=== PATIENT | male | born 1940 | race Caucasian/White ===

== ENCOUNTER 2016-07-30 07:14 | Observation (INO) | payer OTHER ==
[2016-07-25 09:52] VITALS: BMI 29.0
--- NOTE | 2016-07-25 10:35 | PAT Medication Instructions ---
Service Date July 25, 2016. Current Home Medication List Acetaminophen (Tylenol), 500 MG PO UD PRN for Pain Ascorbic Acid (Vitamin C), 1 TAB PO QAM Aspirin (Aspirin Ec), 81 MG PO QAM Bone Meal W/ Vitamin D (Bone Meal), 1 TAB PO QAM Cholecalciferol (Vitamin D), 1 TAB PO QAM Coenzyme Q10 (Ubidecarenone) (Co Q10), 200 MG PO QAM Fish Oil ([place]-3), 1 CAP PO BID Fluticasone Propionate (Nasal) (Flonase Allergy Relief), 1 DOSE INH UD Garlic (Garlic Oil), 1 MG PO QAM Lisinopril (Zestril), 30 MG PO QAM Lovastatin (Mevacor), 40 MG PO QAM Metoprolol Succ (Toprol Xl) (Toprol-Xl), 25 MG PO BID Multivitamin (Multivitamin), 1 TAB PO QAM Nitroglycerin (Nitrostat), 0.4 MG UT PRN PRN for CHEST PAIN Pantoprazole Sodium (Protonix), 40 MG PO QAM [Saw Napavine], 320 MG PO QAM Medication Instructions For Your Scheduled Surgery -Use if needed: Nitroglycerin (Nitrostat), 0.4 MG UT PRN PRN for CHEST PAIN - Last dose 07/21/16 as instructed by surgeon: Aspirin (Aspirin Ec), 81 MG PO QAM - Hold the following medications as of tday 07/25/16: Garlic (Garlic Oil), 1 MG PO QAM [Saw Napavine], 320 MG PO QAM Coenzyme Q10 (Ubidecarenone) (Co Q10), 200 MG PO QAM Fish Oil ([place]-3), 1 CAP PO BID - Hold the following medications the morning of surgery: Ascorbic Acid (Vitamin C), 1 TAB PO QAM Bone Meal W/ Vitamin D (Bone Meal), 1 TAB PO QAM Cholecalciferol (Vitamin D), 1 TAB PO QAM Multivitamin (Multivitamin), 1 TAB PO QAM Lisinopril (Zestril), 30 MG PO QAM - Take the following medications the morning of surgery with a sip of water OTHERWISE NOTHING TO EAT OR DRINK AFTER MIDNIGHT: Acetaminophen (Tylenol), 500 MG PO UD PRN for Pain (may take if needed up to 4 hours prior to surgery if needed) Percocet (may take if needed up to 4 hours prior to surgery if needed) Fluticasone Propionate (Nasal) (Flonase Allergy Relief), 1 DOSE INH UD Pantoprazole Sodium (Protonix), 40 MG PO QAM Metoprolol Succ (Toprol Xl) (Toprol-Xl), 25 MG PO BID Lovastatin (Mevacor), 40 MG PO QAM - Take the following medications as scheduled the night before surgery: Acetaminophen (Tylenol), 500 MG PO UD PRN for Pain Percocet Metoprolol Succ (Toprol Xl) (Toprol-Xl), 25 MG PO BID If you have any questions please call us at [phone] or [phone] or [phone]
[2016-07-25 11:14] LABS: URINE APPEARANCE CLEAR (CLEAR); URINE BILIRUBIN NEG (NEG); URINE COLOR YELLOW; URINE NITRITE NEG (NEG); URINE PH 6.5 (4.5-7.5); URINE SPECIFIC GRAVITY 1.017 (1.000-1.030); UROBILINOGEN NEG (NEG)
[2016-07-25 11:14] LABS: BASO % 0.5 %; BASO ABS # 0.03 K/uL (0-0.2); COMPLETE YES; HEMATOCRIT 39.9 % (42-52); IG% 0.3 %; LYMPH % 16.1 %; LYMPH ABS # 0.94 K/uL (1.2-3.4); MEAN CELL VOLUME 100.5 fL (80-100); MEAN CORPUSCULAR HGB CONC 33.8 g/dl (32-36); MEAN PLATELET VOLUME 10.6 fL (7.4-10.4); NEUT % 76.1 %; PLATELET COUNT 201 K/uL (130-400); RED BLOOD COUNT 3.97 M/uL (4.7-6.1); WHITE BLOOD COUNT 5.84 K/uL (4.8-10.8)
[2016-07-25 11:43] LABS: MANUAL MICROSCOPIC REQUIRED? NO; REVIEW REQ? NO
[2016-07-25 12:54] LABS: CALCIUM 9.6 mg/dl (8.5-10.1); CREATININE 1.1 mg/dl (0.60-1.40); POTASSIUM 4.5 mmol/L (3.5-5.1)
--- NOTE | 2016-07-29 18:06 | HISTORY & PHYSICAL EXAMINATION ---
DATE OF ADMISSION: 07/30/2016 CHIEF COMPLAINT: Right quad rupture. HISTORY OF PRESENT ILLNESS: This is a 76-year-old male patient of Dr. Rose who misstepped his bottom step at home recently and apparently fell. He sustained a right quadriceps muscle rupture and wishes to proceed with a right quadriceps repair. PAST MEDICAL HISTORY: Angina with chest pain, congenital heart disease, hypertension, hypercholesterolemia, and coronary artery disease. SOCIAL HISTORY: Nonsmoker, occasional drinker. PAST SURGICAL HISTORY: Knee surgery in the past. FAMILY HISTORY: Noncontributory. REVIEW OF SYSTEMS: The patient complains of right knee pain and weakness. Otherwise, denies any shortness of breath, chest pain, nausea, vomiting or any other joint complaints. MEDICATIONS: Tylenol 500 mg daily, lisinopril 30 mg daily, Protonix 40 mg daily, metoprolol 50 mg daily, Flonase 50 mcg nasally daily, nitroglycerin 0.4 mg p.r.n., ferrous sulfate 325 as needed, Antivert, aspirin, multivitamin, vitamin D, vitamin C, and garlic oil. ALLERGIES: CRESTOR AND LIPITOR. PHYSICAL EXAMINATION: GENERAL: Well-developed, well-nourished 76-year-old male in no acute distress. He is alert and oriented x3 and pleasant. HEENT: Normocephalic, atraumatic. Extraocular motions are intact. Pupils are equal and reactive to light. HEART: Regular rate and rhythm, no murmurs appreciated. LUNGS: Clear. ABDOMEN: Soft, nontender, bowel sounds present. EXTREMITIES: Right knee reveals obvious palpable deformity with the quadriceps tendon above the patella. He lacks extensor mechanism. He cannot extend his knee actively. Varus and valgus stressing are stable. DIAGNOSES: Right knee quadriceps rupture. He also has a history of angina and chest pain, coronary artery disease, congenital heart disease, hypertension, and hypercholesterolemia. PLAN: The patient was advised of his diagnosis. Indications, risks, benefits, and postop course have all been reviewed. The patient wishes to proceed with a right quadriceps tendon repair. Necessary consent forms, preoperative testing and clearances will be obtained. [facility]
[2016-07-30] VITALS (9 sets, daily range): BP systolic 107–149; BP diastolic 68–97; PULSE 65–79; TEMP 36.4–36.8; O2SAT 90–96; Ht 180.3 cm; Wt 96.9 kg
[~2016-07-30] VITALS: Ht 180.3 cm; Wt 96.9 kg
[~2016-07-30 07:14] MED LIST: ACET-1256 PO; ASCA500 PO; ASPI81TA28 PO; BONETAB PO; CEFAZOLIN 2000 MG/60 ML D5W IV SCH; CHOL400T PO; COEN1CAP10 PO; FLUT0.15 INH; GARL3CAP PO; LACTATED RINGER'S 1000ML 1,000 ML IV SCH; LOVA40TA4 PO; LSNP/30 PO; METO25TA3 PO; MULT-506 PO; NTRGSL/4 UT; OMEG10007 PO; PANT40TA PO; SAW PALMETTO PO
--- NOTE | 2016-07-30 07:41 | History & Physical Bridge Note ---
H&P Re-Evaluation Bridge Note: I have examined the patient, reviewed the History & Physical and in the interval since the performance of the History & Physical I have noted the following changes of clinical significance: No changes noted
[2016-07-30] MEDS ORDERED: MIDAZOLAM HCL 1 MG/ML 2ML VIAL ONE (08:23)
[2016-07-30] MEDS ORDERED: FENTANYL CITRATE INJ 50 MCG/1 ML 2 ML VIAL ONE ×2 (08:23→10:36)
[2016-07-30] MEDS ORDERED: ROPIVACAINE 0.5% 5 MG/ML 30 ML VIAL ONE (09:18)
[2016-07-30] MEDS ORDERED: BUPIVACAINE 0.5 % 5 MG/1 ML PF 10ML VIAL ONE (09:22)
[2016-07-30] MEDS ORDERED: KETAMINE HCL INJ 50 MG/ML 10 ML VIAL ONE (10:29)
[2016-07-30] MEDS ORDERED: SODIUM CHLORIDE 0.9% INJ 10 ML VIAL ONE (10:29)
[2016-07-30] MEDS ORDERED: LIDOCAINE HCL 2% 2 ML VIAL (20MG/ML) ONE (10:29)
[2016-07-30] MEDS ORDERED: PROPOFOL IV EMULSION 10 MG/ML 20 ML VIAL IV ONE (10:29)
[2016-07-30] MEDS ORDERED: MoRPHine SULFATE 2 MG/ML CARP IV PRN ×2 (10:45→12:00)
[2016-07-30] MEDS ORDERED: MAGNESIUM HYDROXIDE SUSP 30 ML UDC PO PRN ×2 (10:45→12:00)
[2016-07-30] MEDS ORDERED: ACETAMINOPHEN 500 MG TAB PO SCH (10:45)
[2016-07-30] MEDS ORDERED: BISACODYL 10 MG SUPP PR PRN (10:45)
[2016-07-30] MEDS ORDERED: ONDANSETRON INJ 2 MG/ML 2 ML VIAL IV PRN ×3 (10:45→12:15)
[2016-07-30] MEDS ORDERED: ALUMINUM/MAGNESIUM/SIMETH (MAALOX MAX) 30 ML UDC PO PRN (10:45)
[2016-07-30] MEDS ORDERED: NITROGLYCERIN 0.4 MG SL PER TAB CHARGE UT PRN (10:45)
--- NOTE | 2016-07-30 11:49 | [facility] Operative Report ---
Operative Report Operative Date July 30, 2016. Pre-Operative Diagnosis Right knee quadriceps tendon rupture Post-Operative Diagnosis same Procedure(s) Performed right quad tendon repair Surgeon Dr. Sawant [employer] Surgeon(s) none Estimated Blood Loss 10 cc Findings quad rupture off patella Specimens none per surgeon Anesthesia attemped spinal followed by general and regional block Complication(s) None Disposition Recovery Room / PACU Indications quad rupture failed extensor mechanism I attest to the content of the Intraoperative Record and any orders documented therein. Any exceptions are noted below.
[2016-07-30] MEDS ORDERED: POTASSIUM CHLORIDE INJ 10 MEQ in SODIUM CHLORIDE 0.9% 1000ML 1,000 ML IV SCH (11:57)
[2016-07-30] MEDS ORDERED: HYDROmorphone INJ 2 MG/ML SYR/VIAL ONE (11:59)
[2016-07-30] MEDS ORDERED: ZOLPIDEM TARTRATE 5 MG TAB PO PRN (12:00)
[2016-07-30] MEDS ORDERED: OXYCODONE HCL IR 5 MG TAB (IMMEDIATE RELEASE) PO PRN (12:00)
[2016-07-30] MEDS ORDERED: CEFAZOLIN IV 1,000 MG in DEXTROSE 5% 50ML 50 ML IV SCH (12:00)
[2016-07-30] MEDS ORDERED: ATROPINE SULFATE 0.1 MG/ML 5ML SYR IV PRN (12:15)
[2016-07-30] MEDS ORDERED: HYDROmorphone INJ 1 MG/ML SYR IV PRN (12:15)
[2016-07-30] MEDS ORDERED: FLUMAZENIL 0.1 MG/1 ML 10 ML VIAL IV PRN (12:15)
[2016-07-30] MEDS ORDERED: NALOXONE HCL 0.4 MG/1 ML VIAL/CARP IV PRN (12:15)
[2016-07-30] MEDS ORDERED: EpHEDrine SULFATE INJ 50 MG/ML AMP IV PRN (12:15)
[2016-07-30] MEDS ORDERED: LABETALOL HCL IV 5 MG/ML 20ML IV PRN (12:15)
[2016-07-30] MEDS ORDERED: PROMETHAZINE HCL INJ 12.5 MG in SODIUM CHLORIDE 0.9% 50ML 50 ML IV PRN (12:15)
--- NOTE | 2016-07-30 12:33 | Anesthesiology Progress Note ---
Anesthesia Post Op Note Date & Time July 30, 2016 at 12:33 Vital Signs Pain Intensity: 4 Vital Signs Past 12 Hours Date Time Temp Pulse Resp B/P Pulse Ox O2 Delivery O2 Flow Rate FiO2 07/30/16 12:25 36.6 76 16 156/67 92 Nasal Cannula 2 07/30/16 12:15 36.6 75 16 145/76 92 Nasal Cannula 2 07/30/16 12:05 85 16 163/93 97 Mask 10 07/30/16 11:55 89 16 160/103 97 Mask 10 07/30/16 11:46 36.9 87 16 168/97 94 Mask 10 07/30/16 07:35 36.7 74 20 143/97 94 Room Air Notes Mental Status: alert / awake / arousable, participated in evaluation Pt Amnestic to Procedure: Yes Nausea / Vomiting: adequately controlled Pain: adequately controlled Airway Patency, RR, SpO2: stable & adequate BP & HR: stable & adequate Hydration State: stable & adequate Anesthetic Complications: no major complications apparent
[2016-07-30] MEDS ORDERED: IV FLUIDS COMPLETED PRN (13:45)
--- NOTE | 2016-07-30 13:50 | OPERATIVE REPORT ---
DATE OF OPERATION: 07/30/2016 INDICATION FOR PROCEDURE: The patient is a 76-year-old male who presents with injury to his right knee. He suffered a fall. He ruptured his quadriceps tendon. MRI demonstrates majority of the quadriceps tendon disruption. There are some fibers inferiorly attached to the inferior aspect of the patella surface at the quad tendon attachment site. About 85% of the tendon otherwise was detached from the superior pole of the patella. PREOPERATIVE DIAGNOSIS: Right knee quad tendon rupture. POSTOPERATIVE DIAGNOSIS: Same. PROCEDURE: Right knee quadriceps tendon repair. SURGEON: Dr. Sawant. STRIPPER SOFT PLASTIC: None. ANESTHESIA: Attempted spinal followed by general with a femoral nerve block. OPERATION AND FINDINGS: OPERATIVE PROCEDURE: The patient was taken to the operating room, anesthetized under anesthesia as dictated. He was placed supine on the operating room table. Pneumatic tourniquet was placed about his right upper thigh. His right lower extremity was prepped and draped with ChloraPrep in usual sterile fashion. His exam demonstrated that he had a clear defect above the patella consistent with a quad rupture. He had moderate swelling only. After his leg was sterilely prepped and draped with ChloraPrep, it was elevated, exsanguinated with Esmarch bandage. Pneumatic tourniquet was raised to 300 mmHg. A longitudinal incision was made over the right knee. We made it more proximal to access the quad tendon kat and just over the patella so we could access the inferior pole of the patella. The subcutaneous flaps were elevated. Some thickened prepatellar bursa was resected. When the quad rupture site was identified there was old blood from the rupture that was evacuated with suction. We irrigated things out copiously. We identified that there was a quadriceps tendon rupture. There was still pretty thick piece of tissue in the anterior patella that was some of the quad tendon tissue still attached to the patella. There was also inferior tissue of the inferior quad tissue capsular tissue that was still attached to the patella. The vast majority of the quad tendon was ruptured. This extended about a cm into the medial and lateral retinaculum, but the majority of the retinaculum was still intact. After copious irrigation, I debrided the end of the quad tendon on both the patella and the proximal quad tendon to get a fresh area for repair. We used a rongeur to remove any fibrinous material. We freed up the undersurface of the quad digitally. I then debrided at the superior pole of the patella any tendon fibers there except for the anterior most aspect in the central patellar region. We debrided this all down to bone using a scalpel and knife scraping and curette. Bone was fully exposed for repair. I did a #5 FiberWire Krack[place] suture into the quad tendon with two #5 FiberWire sutures being placed. I then placed 3 drill holes longitudinally through the patella from superior to inferior using a Stopango suture passer to assist in passing the sutures. Two sutures were placed in the central hole and 1 individually through the medial and lateral holes. They were tied over the inferior patella with a surgeon's knot with very secure fixation. Then I did soft tissue fixation using [id number] #2 Fiberwire sutures across the quad tendon and the retinaculum on the medial and lateral sides were closed with [id number] #1 Vicryl sutures. I placed a Vicryl suture around the knots at the inferior pole of the patella to keep them flatter to avoid any irritation. After copious irrigation, we checked range of motion and the knee had 70-75 degrees of flexion with gravity assisted range of motion. Repair was secure. The subcutaneous tissues were closed with interrupted 2-0 Polysorb. Skin was closed with brayden. Silverlon dressing was placed and double Jose wrap and a knee immobilizer was applied. The patient tolerated the procedure well with minimal blood loss. I attest to the content of the Intraoperative Record and any orders documented therein. Any exceptio ns are noted below.
--- NOTE | 2016-07-30 14:47 | Medical Consult ---
Consultation Date of Consultation: July 30, 2016 @ ~ 17:00 . Attending Physician: Deo Sawant M.D. . Reason for Consultation: medical management . History of Present Illness 76-year-old male followed by Dr. Roche. History of coronary artery disease, hypertension, and other problems noted below. Injured his right knee after mechanical fall and suffered rupture of the right quadriceps. Repair of the right knee injury performed today after regional block. Doing well postoperatively. No chest pain. No cough or dyspnea. No nausea or vomiting. Postop pain well-controlled. . Past Medical/Surgical History Chronic and Resolved Medical Problems: (1) Rhodes's esophagus Status: Chronic (2) Coronary artery disease Permanent Comment: Status post PCI with stenting Status: Chronic (3) Dyslipidemia Status: Chronic (4) GERD (gastroesophageal reflux disease) Status: Chronic (5) Hypertension Status: Chronic (6) Ischemic cardiomyopathy Status: Chronic Surgical Problems: (1) Status post cardiac catheterization Status: Chronic (2) Status post coronary artery stent placement Status: Chronic (3) Status post hernia repair Status: Chronic (4) Status post tonsillectomy Status: Chronic . Family History FATHER Heart disease Social History Smoking Status: Never Smoker Alcohol Use: occasionally Allergies Coded Allergies: Atorvastatin (Verified Adverse Reaction, Mild, MUSCLE ACHES, 07/30/16) Ezetimibe (Verified Adverse Reaction, Mild, MUSCLE ACHES, 07/30/16) Rosuvastatin (Verified Adverse Reaction, Mild, MUSCLE ACHES, 07/30/16) Simvastatin (Verified Adverse Reaction, Mild, MUSCLE ACHES, 07/30/16) Uncoded Allergies: SUTURE (Allergy, Unknown, CATGUT-SWELLING AT SITE, 10/16/14) Home Medications Reported Home Medications Medications Dose Route/Sig Max Daily Dose Days Date Category Dose Instructions Garlic Oil (Garlic) 3 Mg Cap 1 Mg PO QAM 07/25/16 Reported Vitamin C (Ascorbic Acid) 500 Mg Tab 1 Tab PO QAM 07/25/16 Reported Vitamin D (Cholecalciferol) 400 Unit Tab 1 Tab PO QAM 07/25/16 Reported Nitrostat (Nitroglycerin) 0.4 Mg Tab 0.4 Mg UT PRN PRN 07/25/16 Reported PT REPORTS HAS NEVER NEEDED TO TAKE THIS Flonase Allergy Relief (Fluticasone Propionate (Nasal)) 50 Mcg/Act Spr 1 Dose INH UD 07/25/16 Reported Tylenol (Acetaminophen) 500 Mg Tab 500 Mg PO UD PRN 07/25/16 Reported Aspirin Ec (Aspirin) 81 Mg Tab 81 Mg PO QAM 07/25/16 Reported STOPPED TUES 07/22/16 PER PRE OP INSRUCTION Bone Meal (Bone Meal W/ Vitamin D) 1 Tab Tab 1 Tab PO QAM 10/16/14 Reported Co Q10 (Coenzyme Q10 (Ubidecarenone)) 200 Mg Cap 200 Mg PO QAM 10/16/14 Reported [Saw [place]kiff] 320 Mg PO QAM 10/16/14 Reported Multivitamin (Multivitamins) Tab 1 Tab PO QAM 10/16/14 Reported Mevacor (Lovastatin) 40 Mg Tab 40 Mg PO QAM 10/16/14 Reported Zestril (Lisinopril) 30 Mg Tab 30 Mg PO QAM 10/16/14 Reported Toprol-Xl (Metoprolol Succinate) 25 Mg Tabcr 25 Mg PO BID 10/16/14 Reported Protonix (Pantoprazole Sodium) 40 Mg Tab 40 Mg PO QAM 10/16/14 Reported Current Inpatient Medications Current Inpatient Medications Medications (Trade) Dose Ordered Sig/Angelita Route Start Time Stop Time Status Last Admin Dose Admin Cefazolin Sodium 60 ml @ 100 mls/hr PREOP IV 07/30/16 06:00 07/30/16 18:00 07/30/16 09:54 100 MLS/HR Lactated Ringer's (Lr 1000ml) 1,000 ml @ 15 mls/hr Q24H IV 07/30/16 06:00 07/30/16 18:00 07/30/16 07:35 15 MLS/HR Cholecalciferol (Vitamin D Tab) 400 inter.unit QAM PO 07/31/16 09:00 08/30/16 08:59 Fluticasone Propionate (Flonase Nasal [place]) 1 sprays DAILY NA 07/31/16 09:00 08/30/16 08:59 Lisinopril (Zestril Tab) 30 mg QAM PO 07/31/16 09:00 08/30/16 08:59 Metoprolol Succinate (Toprol Xl Tab) 25 mg BID PO 07/30/16 21:00 08/29/16 20:59 Nitroglycerin (Nitrostat Tab) 0.4 mg UD PRN UT 07/30/16 10:45 08/29/16 10:44 Pantoprazole Sodium (Protonix Tab) 40 mg QAM PO 07/31/16 09:00 08/30/16 08:59 Lovastatin (Mevacor Tab) 40 mg QAM PO 07/31/16 09:00 08/30/16 08:59 Morphine Sulfate 2 mg 2 mg Q4HWA PRN IV 07/30/16 10:45 08/13/16 10:44 Potassium Chloride/Dextrose/ Sod Cl (D5W And 1/2nss + 20meq KCl) 1,000 ml @ 100 mls/hr Q10H IV 07/30/16 14:30 08/29/16 14:29 Oxycodone HCl (Roxicodone Immediate Rel Tab) 1-2 TABS FOR PAIN 1 TABLET ... Q4H PRN PO 07/30/16 10:45 08/13/16 10:44 Magnesium Hydroxide (Milk Of Magnesia Susp) 30 ml Q6H PRN PO 07/30/16 10:45 08/29/16 10:44 Bisacodyl (Dulcolax Supp) 10 mg DAILY PRN TN 07/30/16 10:45 08/29/16 10:44 Docusate Sodium (coLACE CAP) 100 mg BID PO 07/30/16 21:00 08/29/16 20:59 Al Hydrox/Mg Hydrox/Simethicone (Maalox Max Susp) 15 ml Q4H PRN PO 07/30/16 10:45 08/29/16 10:44 Ondansetron HCl (Zofran Inj) 4 mg Q6H PRN IV 07/30/16 10:45 08/29/16 10:44 07/30/16 14:25 4 MG Ferrous Gluconate 324 mg 324 mg TIDM PO 07/30/16 17:45 08/29/16 17:44 Cefazolin Sodium/ Dextrose (Ancef Iv/D5 50ml) 60 ml @ 100 mls/hr Q8H IV 07/30/16 18:00 07/31/16 02:35 Acetaminophen (Tylenol Tab) 1,000 mg Q8H PO 07/30/16 16:00 08/29/16 15:59 Zolpidem Tartrate (Ambien Tab) 5 mg HSZ PRN PO 07/30/16 12:00 08/29/16 11:59 Aspirin (Ecotrin Tab) 325 mg BID PO 07/30/16 21:00 08/29/16 20:59 Hydromorphone HCl (Dilaudid Inj) 0.5 mg Q5M PRN IV 07/30/16 12:15 07/30/16 17:15 Naloxone HCl (Narcan Inj) 0.2 mg Q2M PRN IV 07/30/16 12:15 07/30/16 17:15 Flumazenil (Romazicon Inj) 0.2 mg Q2M PRN IV 07/30/16 12:15 07/30/16 17:15 Ondansetron HCl 4 mg 4 mg ONE PRN IV 07/30/16 12:15 07/30/16 17:15 Promethazine HCl/ Sodium Chloride (Phenergan Inj/ Nss 50ml) 50.5 ml @ 202 mls/hr ONE PRN IV 07/30/16 12:15 07/30/16 17:15 Labetalol HCl (Normodyne IV) 5 mg Q5M PRN IV 07/30/16 12:15 07/30/16 17:15 Ephedrine Sulfate (EpHEDrine SULFATE INJ) 5 mg Q5M PRN IV 07/30/16 12:15 07/30/16 17:15 Atropine Sulfate (Atropine Sulfate 0.1MG/Ml Inj) 0.5 mg Q1M PRN IV 07/30/16 12:15 07/30/16 17:15 Miscellaneous (Iv Fluids Completed) 1 ea PRN PRN N/A 07/30/16 13:45 07/30/17 13:44 Review of Systems Constitutional: No fever, No weight loss Respiratory: No cough, No shortness of breath Cardiovascular: No chest pain Abdomen: No nausea, No vomiting, No GI bleeding Musculoskeletal: + joint pain (right knee) Genitourinary - Male: No hematuria Hematologic / Lymphatic: No abnormal bleeding/bruising Physical Exam Date Time Temp Pulse Resp B/P Pulse Ox O2 Delivery O2 Flow Rate FiO2 07/30/16 13:50 77 18 121/70 92 07/30/16 13:20 74 18 134/68 93 07/30/16 12:50 Nasal Cannula 2.0 07/30/16 12:50 36.8 74 16 149/89 96 Nasal Cannula 2.0 07/30/16 12:50 Nasal Cannula 2.0 07/30/16 12:35 36.6 74 16 123/75 92 Nasal Cannula 2 07/30/16 12:25 36.6 76 16 156/67 92 Nasal Cannula 2 07/30/16 12:15 36.6 75 16 145/76 92 Nasal Cannula 2 07/30/16 12:05 85 16 163/93 97 Mask 10 07/30/16 11:55 89 16 160/103 97 Mask 10 07/30/16 11:46 36.9 87 16 168/97 94 Mask 10 07/30/16 07:35 36.7 74 20 143/97 94 Room Air General Appearance: WD/WN, no apparent distress Head: normocephalic, atraumatic Eyes: normal inspection, PERRL, EOMI ENT: normal ENT inspection, hearing grossly normal, + pertinent finding ( dentures) Neck: supple, no adenopathy, thyroid normal, no JVD, trachea midline Respiratory/Chest: lungs clear, no respiratory distress, no accessory muscle use Cardiovascular: regular rate, rhythm, no edema, no gallop, no JVD, no murmur, normal peripheral pulses Abdomen/GI: normal bowel sounds, non tender, soft, no organomegaly, no pulsatile mass Extremities/Musculoskelatal: + pertinent finding (right knee bandaged; no pretibial edema or calf tenderness) Neurologic/Psych: employee's representative II-XII nml as tested (PERRL, EOMI, no facial palsy), alert, normal mood/affect, oriented x 3 Skin: normal color, warm/dry, no rash Lymphatic: no adenopathy (cervical) Laboratory Results Item Value Date Time Hemoglobin 13.5 g/dL L 07/25/16 1045 White Blood Count 5.84 K/uL 07/25/16 1045 Platelet Count 201 K/uL 07/25/16 1045 Sodium Level 142 mmol/L 07/25/16 1045 Potassium Level 4.5 mmol/L 07/25/16 1045 Chloride Level 106 mmol/L 07/25/16 1045 Carbon Dioxide Level 29 mmol/L 07/25/16 1045 Blood Urea Nitrogen 18 mg/dl 07/25/16 1045 Creatinine 1.10 mg/dl 07/25/16 1045 Random Glucose 88 mg/dl 07/25/16 1045 Assessment & Plan S/P REPAIR RIGHT QUADRICEPS TENDON RUPTURE Doing well postoperatively. CORONARY ARTERY DISEASE No anginal symptoms. Continue metoprolol and statin. Resume aspirin postoperatively when OK from surgical / anesthesia perspective ISCHEMIC CARDIOMYOPATHY Compensated. Continue lisinopril and metoprolol succinate. HYPERTENSION Continue metoprolol and lisinopril. Follow and titrate therapy. GERD / RHODES'S ESOPHAGUS Continue PPI. DYSLIPIDEMIA Continue lovastatin. VTE PROPHYLAXIS Per Orthopedics protocol. Thank you for this consultation. We will follow the patient with you during their hospital stay. You can reach a [facility] via pager @ [phone]. You can reach me via cell @ [phone]. . Additional Copies To Victor Manuel Roche M.D.
[2016-07-30] MEDS: D5W AND 1/2NSS + 20MEQ KCL 1,000 ML IV SCH ×2 (15:08→23:09)
[2016-07-30] MEDS: ACETAMINOPHEN 500 MG TAB PO SCH ×2 (15:29→23:09)
[2016-07-30] MEDS: FERROUS GLUCONATE 324 MG TAB PO SCH (18:23)
[2016-07-30] MEDS: CEFAZOLIN IV 2,000 MG in DEXTROSE 5% 50ML 50 ML IV SCH (18:24)
[2016-07-30] MEDS: DOCUSATE SODIUM 100 MG CAP PO SCH (21:10)
[2016-07-30] MEDS: METOPROLOL SUCC 25MG EXT REL TAB PO SCH (21:10)
[2016-07-30] MEDS: ASPIRIN 325 MG ECTAB PO SCH (21:10)
[2016-07-31] MEDS: OXYCODONE HCL IR 5 MG TAB (IMMEDIATE RELEASE) PO PRN ×4 (01:17→14:01)
[2016-07-31] MEDS: CEFAZOLIN IV 2,000 MG in DEXTROSE 5% 50ML 50 ML IV SCH (01:25)
[2016-07-31 04:07] VITALS: BP 136/78; PULSE 65; TEMP 36.5; O2SAT 92
[2016-07-31 06:28] LABS: HEMATOCRIT 34.8 % (42-52); MEAN CELL VOLUME 100.3 fL (80-100); MEAN CORPUSCULAR HEMOGLOBIN 33.7 pg (25-34); MEAN CORPUSCULAR HGB CONC 33.6 g/dl (32-36); MEAN PLATELET VOLUME 10.6 fL (7.4-10.4); PLATELET COUNT 164 K/uL (130-400); RED BLOOD COUNT 3.47 M/uL (4.7-6.1); WHITE BLOOD COUNT 8.49 K/uL (4.8-10.8)
[2016-07-31 07:10] LABS: BUN/CREATININE RATIO 13.6 (10-20); CALCIUM 8.9 mg/dl (8.5-10.1); POTASSIUM 4.2 mmol/L (3.5-5.1)
--- NOTE | 2016-07-31 07:23 | Orthopedic Progress Note ---
Orthopedic Progress Note Date of Service Jul 31, 2016. Subjective Post OP Day: 1 Reports: feeling well, pain controlled w PO medications, Denies: complaints, chest pain, SOB, nausea / vomiting, light headedness, calf pain Objective calves soft nontender, N/V intact, capillary refill less than 2 sec., dressing C /D/I, toes mobile Date Time Temp Pulse Resp B/P (MAP) Pulse Ox O2 Delivery O2 Flow Rate FiO2 07/31/16 04:07 36.5 65 18 136/78 (97) 92 Nasal Cannula 2.0 07/30/16 23:47 36.4 65 18 125/71 (89) 94 Nasal Cannula 2.0 07/30/16 23:05 Nasal Cannula 2.0 07/30/16 21:09 71 127/69 (88) 07/30/16 19:20 36.4 79 16 128/72 (90) 90 Nasal Cannula 1.0 07/30/16 15:50 36.7 72 18 107/68 (81) 91 Nasal Cannula 2.0 07/30/16 15:30 Nasal Cannula 2.0 07/30/16 15:04 67 18 124/69 (87) 92 07/30/16 13:50 77 18 121/70 (87) 92 07/30/16 13:20 74 18 134/68 (90) 93 07/30/16 12:50 Nasal Cannula 2.0 07/30/16 12:50 36.8 74 16 149/89 (109) 96 Nasal Cannula 2.0 07/30/16 12:50 Nasal Cannula 2.0 07/30/16 12:35 36.6 74 16 123/75 92 Nasal Cannula 2 07/30/16 12:25 36.6 76 16 156/67 92 Nasal Cannula 2 07/30/16 12:15 36.6 75 16 145/76 92 Nasal Cannula 2 07/30/16 12:05 85 16 163/93 97 Mask 10 07/30/16 11:55 89 16 160/103 97 Mask 10 07/30/16 11:46 36.9 87 16 168/97 94 Mask 10 07/30/16 07:35 36.7 74 20 143/97 (112) 94 Room Air Laboratory Results 24 Hours: Test 07/31/16 06:15 Hematocrit 34.8 % Hemoglobin 11.7 g/dL Assessment & Plan Assessment: POD #1, Rt knee quad tendon repair Plan: PT/ OT- WBAT with brace and walker, NO ROM. DVT proph- ASA D/C planning- Home later this afternoon if stable. Appreciate medicine input. Inhouse Planning Pain Management: Morphine, PO Tylenol, Oxy IR DVT Prophylaxis: TEDs, SCDs, ASA Discharge Planning Discharge Planning: home Pain Management: PO Tylenol, Oxy IR DVT Prophylaxis: ASA
[2016-07-31] MEDS ORDERED: RXC5 PO (07:28)
[2016-07-31] MEDS ORDERED: ASPEC325 PO (07:28)
--- NOTE | 2016-07-31 07:32 | Discharge Instructions ---
Discharge Instructions Date of Service Jul 31, 2016. Admission Reason for Admission: Strain Of Right Quadriceps Muscle, Fascle, & Tendo Discharge Discharge Diagnosis / Problem: Right quad tendon repair. Discharge Goals Goal(s): Improve function Activity Recommendations Activity Limitations: as noted below . Instructions / Follow-Up Instructions / Follow-Up Weight bear as tolerated with brace and walker. Keep knee straight at all times, do not bend the knee. Keep dressings clean, dry and in tact until follow up in the office. Ice/ elevate as needed. No driving. Follow up with Dr. Sawant 1 week post op, call [phone] to make/ confirm appt. Current Hospital Diet Patient's current hospital diet: AHA Diet (Heart Healthy) Discharge Diet Recommended Diet: Regular Diet Procedures Procedures Performed: Right Knee Quadriceps Tendon Rupture Repair Pending Studies Studies pending at discharge: no Medical Emergencies . Who to Call and When: Medical Emergencies: If at any time you feel your situation is an emergency, please call 911 immediately. . Non-Emergent Contact Non-Emergency issues call your: Primary Care Provider . "Provider Documentation" section prepared by Desmond Moffett. . VTE Core Measure Inpt VTE Proph given/why not?: Other Anticoagulation (asa), T.E.DJuan Bueno PA Drug Monitoring Program Search Results: patient reviewed within database, no issues identified
[2016-07-31 07:35] VITALS: BP 148/76; PULSE 65; TEMP 36.5; O2SAT 92
[2016-07-31] MEDS: ACETAMINOPHEN 500 MG TAB PO SCH (07:46)
[2016-07-31] MEDS ORDERED: LOVASTATIN 20 MG TAB PO SCH (09:00)
[2016-07-31] MEDS ORDERED: PANTOprazole SOD 40 MG TAB PO SCH (09:00)
[2016-07-31] MEDS ORDERED: CHOLECALCIFEROL 400 INTER.UNIT TAB PO SCH (09:00)
[2016-07-31] MEDS ORDERED: FLUTICASONE PROPIONATE NA SPR 16 GM BTL SCH (09:00)
[2016-07-31] MEDS ORDERED: LISINOPRIL 10 MG TAB PO SCH (09:00)
[2016-07-31] MEDS ORDERED: MULTIVITAMIN TAB PO SCH ×2 (09:00)
[2016-07-31] MEDS ORDERED: NON-FORMULARY MEDICATION (Coenzyme Q10 (Ubidecarenone) (Co Q10) 200 MG) PO SCH (09:00)
[2016-07-31] MEDS: FERROUS GLUCONATE 324 MG TAB PO SCH ×2 (09:22→13:58)
[2016-07-31] MEDS: DOCUSATE SODIUM 100 MG CAP PO SCH (09:23)
[2016-07-31] MEDS: ASPIRIN 325 MG ECTAB PO SCH (09:24)
[2016-07-31] MEDS: METOPROLOL SUCC 25MG EXT REL TAB PO SCH (09:25)
[2016-07-31 09:30] VITALS: O2SAT 94
--- NOTE | 2016-07-31 09:41 | Anesthesiology Progress Note ---
Anesthesia Post Op Note Date & Time Jul 31, 2016 at 09:41 Vital Signs Pain Intensity: 2.0 Vital Signs Past 12 Hours Date Time Temp Pulse Resp B/P (MAP) Pulse Ox O2 Delivery O2 Flow Rate FiO2 07/31/16 07:35 36.5 65 16 148/76 (100) 92 Nasal Cannula 2.0 07/31/16 04:07 36.5 65 18 136/78 (97) 92 Nasal Cannula 2.0 07/30/16 23:47 36.4 65 18 125/71 (89) 94 Nasal Cannula 2.0 07/30/16 23:05 Nasal Cannula 2.0 Notes Mental Status: alert / awake / arousable, participated in evaluation Pt Amnestic to Procedure: Yes Nausea / Vomiting: adequately controlled Pain: adequately controlled Airway Patency, RR, SpO2: stable & adequate BP & HR: stable & adequate Hydration State: stable & adequate Neuraxial Anesthesia: sensory block resolved Anesthetic Complications: no major complications apparent
[2016-07-31] MEDS: D5W AND 1/2NSS + 20MEQ KCL 1,000 ML IV SCH (10:03)
[2016-07-31 11:25] VITALS: BP 147/69; PULSE 73; O2SAT 92
[2016-07-31 11:45] VITALS: BP 148/73; PULSE 67; TEMP 36.7; O2SAT 95
[2016-07-31 14:06] VITALS: BP 148/73; PULSE 67; TEMP 36.7; O2SAT 95
--- NOTE | 2016-08-10 12:29 | DISCHARGE SUMMARY ---
SUBJECTIVE: This is a 76-year-old male patient of Dr. Sawant's who misstepped his bottom step at home and sustained a right quadriceps muscle rupture. The patient elected to proceed with a right quadriceps tendon repair. PAST MEDICAL HISTORY: Angina with chest pain, congenital heart disease, hypertension, hypercholesterolemia and coronary artery disease. POSTOPERATIVE COURSE: The patient underwent a right quad tendon repair on 07/30/2016, he was followed closely with medical consultation, pain control and limited physical therapy. He did well postoperatively and was discharged home on postoperative day #1. PHYSICAL EXAMINATION: Right dressings were clean, dry and intact. Brace was intact. Neurologically and neurovascularly he was intact in his right lower extremity with no calf tenderness. DIAGNOSES: Status post right quadriceps tendon repair with a history of angina, congenital heart disease, hypertension, hypercholesterolemia and coronary artery disease. PLAN: The patient was discharged home. I will do no physical therapy at this point in time. He can weightbear as tolerated, but he has to have his knee in full extension with his brace. He will use a walker for assistance. He will leave on his preadmission medications with the addition of pain medications. The patient will follow up in the office with Dr. Sawant as scheduled.
== END 2016-07-31 15:05 | disposition home or self-care (01) ==
LOC: ENRESERVDT → ENRESERVTM → C.ACU 07:14 → C.3E 12:11
PROVIDERS: ADMIT Orthopaedic Surgery Sports Medicine; ATTEND Orthopaedic Surgery Sports Medicine
DX: S76.111A Strain of right quadriceps muscle, fascia and tendon, initial encounter (principal); W10.8XXA Fall (on) (from) other stairs and steps, initial encounter; Y92.009 Unspecified place in unspecified non-institutional (private) residence as the place of occurrence of the external cause; I25.10 Atherosclerotic heart disease of native coronary artery without angina pectoris; I11.0 Hypertensive heart disease with heart failure; I50.9 Heart failure, unspecified; E78.00 Pure hypercholesterolemia, unspecified; Z79.899 Other long term (current) drug therapy

== ENCOUNTER → 2016-10-28 | Outpatient (CLI) | payer OTHER ==
[~2016-10-28] MED LIST changes: +ASPEC325 PO; -ASPI81TA28 PO; -CEFAZOLIN 2000 MG/60 ML D5W IV SCH; -LACTATED RINGER'S 1000ML 1,000 ML IV SCH; -OMEG10007 PO; +OPTIRAY 320 IV PRN; +RXC5 PO
--- NOTE | 2016-10-28 11:05 | DIAGNOSTIC IMAGING REPORT ---
ANGIO AA DONTE LE RUNOFF HISTORY: 76 years-old Male presents with possible aneurysm of the left lower extremity. COMPARISON: Right knee MR 07/22/2016 TECHNIQUE: CTA abdomen and pelvis with bilateral lower extremity runoff was obtained both with and without the use of IV contrast. 94 mL Optiray 320 was administered. A dose lowering technique was used consistent with the principals of SPRING. Coronal and sagittal MIPS were obtained from the axial data set. Measurements were made according to NASCET criteria FINDINGS: CTA: There is enlargement of the imaged inferior cardiac chambers. [place] coronary arterial calcifications are noted with stent graft noted in the region of the left anterior descending. No intramural hematoma on the noncontrast study. No aneurysm seen within the aortic root. There is tortuosity and moderate mixed plaquing of the abdominal aorta without aneurysm identified. Note is made of dual arterial supply to bilateral kidneys. Mixed plaquing involves the origin of the renal and mesenteric arteries without high-grade stenosis. Superior mesenteric and inferior mesenteric arteries as well as the celiac trunk are patent. There is fusiform dilation of the bilateral common iliac arteries, 1.6 cm on the right and 1.2 cm on the left. Bilateral common and external iliac arteries are patent. The bilateral common femoral, superficial femoral, profunda femoris arteries are patent. There is focal aneurysmal dilation with ulcerative plaque noted involving the medial aspect of the distal aspect left superficial femoral artery, nicely seen on image 706 of the axial series measuring 11 x 8 mm. Moderate mixed plaquing with fusiform aneurysmal dilation involves the left popliteal artery, 2.0 x 2.1 cm. Additional mixed plaquing involves the anterior tibial artery areas of approximately 50% stenosis seen on image 959. There is markedly decreased flow within the distal portion of the anterior tibial artery at the level the mid calf with no flow seen within the anterior tibial artery at the level of the ankle. Mixed plaquing seen within the tibial peroneal trunk, posterior tibial and peroneal arteries with flow seen to the level of the ankle. Moderate mixed plaquing of the right popliteal artery is also noted with fusiform aneurysmal dilation measuring up to 2.9 x 2.8 cm. No associated occlusion. There is decreased flow within the proximal aspect of the anterior tibial artery with no appreciable contrast seen within the distal anterior tibial artery beginning at the level of the mid calf (for example nicely seen on image 990. Flow within the posterior tibial and peroneal arteries are seen to the level of the ankle. CT ABDOMEN/PELVIS: Bibasilar subsegmental atelectasis is noted with bronchial wall thickening suggesting bronchitis. No pneumoperitoneum. There is a 1.2 x 0.9 cm low attenuating lesion of the hepatic dome. The spleen, pancreas and adrenal glands are unremarkable. There is mild fundal enhancement involving the gallbladder suspicious for fundal adenomyomatosis. No calculi are seen within the kidneys. 1.7 cm exophytic cyst is seen within the inferior pole right kidney. 1.4 cm cyst involves the superior pole left kidney. No hydronephrosis. Prostate is mildly enlarged. Urinary bladder is unremarkable. Postsurgical changes are seen within the left inguinal region suggesting prior hernia repair. No bulky adenopathy. Large hiatal hernia with partially intrathoracic stomach noted. There is a small duodenal diverticulum. No bowel obstruction. Extensive sigmoid colonic diverticulosis is noted without CT evidence of acute diverticulitis. There is apparent asymmetric wall thickening and enhancement within the right aspect of the sigmoid colon, for example seen on image 335 of the axial series with associated mildly prominent lymph nodes measuring up to 1.2 x 0.5 cm. There is mild congestion of the adjacent mesocolon vasculature. Moderate stool volume is noted. No evidence of acute appendicitis. Bilateral hydroceles (varicoceles are present. No suspicious lytic or blastic bony lesions. Multilevel severe degenerative changes of the spine are noted. Degenerative changes involve the knees and ankles. IMPRESSION: 1. Asymmetric wall thickening and enhancement involving the mid right sigmoid colon with surrounding mild mesocolon vascular congestion and mild adenopathy is suspicious for primary colorectal carcinoma with possible lymphatic metastasis. This requires further attention with colonoscopy. 2. Atherosclerotic vascular disease with aneurysmal dilation of the bilateral popliteal arteries, right greater than left measuring up to 2.9 x 2.8 cm. 3. Diminished to absent flow involving the bilateral anterior tibial arteries extending from the mid calf distally suggests severe stenosis. Two-vessel flow is noted to the level of the ankles bilaterally. 4. No aortic aneurysm or dissection. 5. 1.2 cm low attenuating lesion of the hepatic dome is nonspecific and may also reflect a metastasis. 6. Hiatal hernia with partially intrathoracic stomach. 7. Additional incidental findings as above. The above report was generated using voice recognition software. It may contain grammatical, syntax or spelling errors. Electronically signed by: Alejandro Glasgow M.D. 10/28/2016 11:04 AM Dictated Date/Time: 10/28/2016 10:39 AM
== END | disposition home or self-care (01) ==
LOC: C.CTS 09:38
PROVIDERS: ATTEND Surgery Vascular Surgery
DX: I72.4 Aneurysm of artery of lower extremity (principal); K44.9 Diaphragmatic hernia without obstruction or gangrene

== ENCOUNTER → 2017-06-02 | Outpatient (CLI) | payer OTHER ==
--- NOTE | 2017-06-02 13:47 | DIAGNOSTIC IMAGING REPORT ---
ANGIO AA DONTE LE RUNOFF CLINICAL HISTORY: 76 years-old Male presenting with POPLITEAL ARTERY ANEURYSM *STAT READ*. TECHNIQUE: Multidetector CT angiography of the abdomen and pelvis and bilateral lower extremities was performed after the administration of intravenous contrast. 3-D volumetric and/or maximum intensity projection (MIP) images were subsequently reconstructed for review. IV contrast: 119 mL of Optiray 320. A dose lowering technique was used consistent with the principles of ALARA (as low as reasonably achievable). Stenosis measurements were based on NASCET-like criteria. COMPARISON: 10/28/2016. CT DOSE (mGy.cm): The estimated cumulative dose is 1850.66 mGy.cm. FINDINGS: [employer] topogram: Unremarkable. Vasculature: Atherosclerosis of the normal caliber abdominal aorta, which is tortuous in the infrarenal portion. Celiac, superior mesenteric, multiple renal, and inferior mesenteric arteries patent. Conventional hepatic arterial anatomy. 2 right and 3 left main renal arteries. Atherosclerosis without significant narrowing of the bilateral common, internal, and external iliac arteries. Bilateral common, superficial, and deep femoral arteries patent. Redemonstration of the bilateral popliteal artery aneurysms, which demonstrate extensive calcified and noncalcified atherosclerotic plaque. The aneurysm on the right measures 2.9 x 2.8 cm, unchanged. The aneurysm on the left measures 2.2 x 2.2 cm, essentially unchanged. Poor opacification of the 3 vessels of the lower leg in the bilateral lower extremities due to timing of the contrast bolus. Grossly patent vessels beyond the level of the ankle mortise and the plantar aspects. Remaining abdomen and pelvis: A portion of the anterior abdomen is excluded from the [id number] limiting evaluation in this region of the hollow and solid viscera. Lung bases: Minimal basilar opacities, likely atelectasis. Normal heart size. No pericardial or pleural effusion. Liver: Normal morphology. No liver lesion allowing for the phase of contrast. Patent hepatic vasculature. Biliary: No intrahepatic or extrahepatic biliary ductal dilatation. Normal gallbladder. Pancreas: Normal. Spleen: Normal. Adrenal glands: Normal. Kidneys and ureters: Several hypodensities noted in the kidneys likely simple cysts. No hydronephrosis. No nephrolithiasis. Ureters normal. Bladder: Circumferential bladder wall thickening allowing for underdistention. Pelvic organs: Prostate enlargement likely secondary to benign prostatic hyperplasia. Bowel: Diverticulosis of the sigmoid colon, which demonstrates persistent significant wall thickening. No pericolonic inflammatory change. Diverticulosis without wall thickening also noted in the more proximal sigmoid colon moderate stool burden in the right and transverse colon. No bowel obstruction. Large hiatal hernia. Peritoneal cavity: No free fluid or intraperitoneal gas. Lymph nodes: No enlarged lymph nodes in the abdomen or pelvis. Abdominal wall: Largely not included within the [id number]. Musculoskeletal: Degenerative changes of the spine. IMPRESSION: 1. Stable appearance of the bilateral popliteal artery aneurysms the largest on the right measuring 2.9 cm. Evaluation of the lower leg arteries is limited due to timing of the contrast bolus. Grossly patent lower extremity vessels beyond the ankle mortise. 2. Diverticulosis of the sigmoid colon with persistent significant wall thickening. This could represent chronic diverticular disease/circular muscle hyperplasia, however, underlying neoplasm should be excluded. There is no record of interval colonoscopy in the electronic medical record. Correlate clinically as colonoscopy should be performed if the patient has not already undergone the procedure. No evidence of acute diverticulitis. Electronically signed by: Rafael Hansen M.D. 06/02/2017 1:45 PM Dictated Date/Time: 06/02/2017 1:33 PM
== END | disposition home or self-care (01) ==
LOC: C.CTS 12:51
PROVIDERS: ATTEND Physician Assistant
DX: I72.4 Aneurysm of artery of lower extremity (principal)

== ENCOUNTER 2017-06-12 05:49 | Day surgery (SDC) | payer OTHER ==
[2017-06-12] VITALS (7 sets, daily range): BP systolic 116–169; BP diastolic 66–83; PULSE 72–82; TEMP 36.2–36.8; O2SAT 91–93; Ht 177.8 cm; Wt 97.8 kg
[~2017-06-12] VITALS: Ht 177.8 cm; Wt 97.8 kg
--- NOTE | 2017-06-12 05:48 | History and Physical ---
History & Physical Date of Service Jun 12, 2017. History & Physical CC: Right popliteal artey aneurysm HPI: Mr. Rafael Kramer is a pleasant 76-year-old gentleman with history of bilateral popliteal aneurysms. He is here to discuss aneurysm repair. The patient says that his aneurysms were diagnosed after he developed knee pain in 2014. He underwent a CT scan of his knee and they were incidentally discovered. The patient later underwent a right knee surgery in September 2016. Since then, he occasionally has some right knee aching. He denied any symptoms of claudication or rest pain in either lower extremity. He underwent CTA of the bilateral lower extremities on 06/02/17. This showed stable bilateral popliteal aneurysm, 2.9 cm on the right and 2.2 cm on the left. He has 2- vessel runoff on the right lower extremity and 3-vessel tibial runoff on the left lower extremity. The patient denies any shortness of breath, chest pain, fever, chills, nausea, vomiting. He reports that he has been working with physical therapy following his procedure and is doing well. REVIEW OF SYSTEMS: Negative except for HPI. PAST MEDICAL HISTORY: 1. Hiatal hernia. 2. Coronary artery disease status post 3 stents, one in 2009 and two in 2013. PAST SURGICAL HISTORY: The patient had a knee surgery, bilateral lower extremities due to trauma. The patient had a nasal operation in the past. The patient had coronary artery stents in 2009 and 2013. FAMILY HISTORY: Includes coronary artery disease in the father. SOCIAL HISTORY: The patient denies any tobacco use. The patient reports using alcohol socially and patient denies any illicit drug use. ALLERGIES: CRESTOR, ZOCOR AND ZETIA. MEDICATIONS: Percocet, aspirin 81 mg, CoQ10, ferrous fumarate, lisinopril, lovastatin, multivitamin, metoprolol XL 50 mg, Nitrostat and pantoprazole. PHYSICAL EXAMINATION: The patient is awake, alert, oriented, follows commands. Does not appear to be in any distress. Cardiovascular: Heart is regular rate and rhythm. No carotid bruits auscultated. Lungs are clear to auscultation. The patient has bilateral palpable radial pulses, bilateral femoral pulses, bilateral popliteal and bilateral PT pulses. There were no palpable DP pulses on either side. Lower extremities: The patient does not have any open wounds or ulcers his lower extremities. Abdomen is soft, nontender, nondistended. No large mass was observed or palpated in the abdomen. Imp: Bilateral popliteal artery aneurysms Plan: Patient is admitted for endovascular repair of his popliteal artery aneurysm of his right leg. I have discussed the risks options and benefits of the procedure with the patient. The patient understands the risks options and benefits and agrees to the procedure.
[~2017-06-12 05:49] MED LIST changes: +LISI30TA3 PO; -LSNP/30 PO; -OPTIRAY 320 IV PRN
[2017-06-12] MEDS ORDERED: SODIUM CHLORIDE 0.9% 1000ML IV SCH (06:00)
[2017-06-12] MEDS ORDERED: CEFAZOLIN 1000MG IV PUSH 7.5 ML IV SCH (06:00)
[2017-06-12] MEDS ORDERED: CEFAZOLIN 2000MG IV PUSH 15 ML IV SCH (06:00)
[2017-06-12] MEDS ORDERED: ASPI81TA28 PO (06:16)
[2017-06-12] MEDS ORDERED: MISC1CAP60 PO (06:17)
[2017-06-12] MEDS ORDERED: METO-217 PO (06:22)
[2017-06-12] MEDS ORDERED: FAMO20TA11 PO (06:23)
[2017-06-12] MEDS ORDERED: VITACAP37 PO (06:25)
[2017-06-12] MEDS ORDERED: FERR1CAP2 PO (06:25)
[2017-06-12 07:00] LABS: CREATININE 1.27 mg/dl (0.60-1.40)
[2017-06-12] MEDS ORDERED: HEPARIN SOD (PORCINE) 1000 UNIT/ML 10 ML VIAL ONE (07:24)
[2017-06-12] MEDS ORDERED: FENTANYL CITRATE INJ 50 MCG/1 ML 2 ML VIAL ONE (07:24)
[2017-06-12] MEDS ORDERED: MIDAZOLAM HCL 1 MG/ML 2ML VIAL ONE (07:25)
--- NOTE | 2017-06-12 07:33 | Pre Sedation Assessment ---
Pre Sedation Assessment General Date of Sedation: Jun 12, 2017. Vital Signs Past 12 Hours Date Time Temp Pulse Resp B/P (MAP) Pulse Ox O2 Delivery O2 Flow Rate FiO2 06/12/17 06:31 36.7 72 20 169/83 93 Room Air Review Cardiovascular: regular rate, rhythm Lungs: lungs clear Pre-Sedation Airway Assessment Smoking Status: Never Smoker Hx of Sleep Apnea: No Short Thick Neck: No Thyro-mental Distance: > 3 Finger Breadths Oral Cavity: Dentures Mallampati Classification: Class II ASA Classification: Class III NPO Status Date of Last Intake of Fluids: Jun 11, 2017 Time of Last Intake of Fluids: 2300 Date of Last Intake of Solids: Jun 11, 2017 Time of Last Intake of Solids: 2300 Procedure Planning Contraindications for Sedation: None Current Medications Reviewed: Yes Notes The planned sedation has been discussed with the patient. Informed Consent was obtained. I have identified the patient, determined the appropriateness of sedation and have assessed the patient immediately prior to the procedure. All medicine(s) and interventions are by my order.
[2017-06-12] MEDS ORDERED: FENTANYL CITRATE INJ 50 MCG/1 ML 2 ML VIAL IV ONE ×3 (08:29→09:52)
[2017-06-12] MEDS ORDERED: MIDAZOLAM HCL 1 MG/ML 2ML VIAL IV ONE ×2 (08:29→09:23)
[2017-06-12] MEDS ORDERED: LIDOCAINE HCL 1% 20 ML VIAL SQ ONE (08:29)
[2017-06-12] MEDS ORDERED: HEPARIN SOD (PORCINE) 1000 UNIT/ML 10 ML VIAL IV ONE (09:00)
[2017-06-12] MEDS ORDERED: IODIXANOL (VISIPAQUE) 270 MG/ML 150ML XX ONE (09:56)
--- NOTE | 2017-06-12 10:05 | [facility] Post Operative Brief Note ---
Immediate Operative Summary Operative Date Jun 12, 2017. Pre-Operative Diagnosis Right Popliteal Artery Aneurysm Post-Operative Diagnosis Right Popliteal Artery Aneurysm Procedure(s) Performed Endovascular Repair of Right Popliteal Artery Aneurysm, Intravascular Ultrasound Popliteal Artery, Moderate Sedation from 828 - 947. Surgeon Dr. Pleitez Muck Farmer Surgeon(s) Dr. Pleitez Estimated Blood Loss 15 Findings Consistent with Post-Op Diagnosis Specimens None Drains None Anesthesia Type IV Sedat Cons RN Only Complication(s) none Disposition Accompanied Pt To Recover: no Disposition:
--- NOTE | 2017-06-12 10:05 | Post Sedation Assessment ---
Post Sedation Assessment General Date of Sedation Jun 12, 2017. Vital Signs: Vital Signs Past 12 Hours Date Time Temp Pulse Resp B/P (MAP) Pulse Ox O2 Delivery O2 Flow Rate FiO2 06/12/17 09:58 81 20 122/73 94 Mask 4 06/12/17 09:53 78 20 122/68 94 Mask 6 06/12/17 09:48 81 18 122/74 94 Mask 6 06/12/17 09:45 Mask 6 06/12/17 09:40 Mask 6 06/12/17 09:35 Mask 6 06/12/17 09:30 Mask 6 06/12/17 09:25 Mask 6 06/12/17 09:20 Mask 6 06/12/17 09:15 Mask 6 06/12/17 09:10 Mask 6 06/12/17 09:05 Mask 6 06/12/17 09:00 Mask 6 06/12/17 08:55 Mask 6 06/12/17 08:50 Mask 6 06/12/17 08:45 Mask 6 06/12/17 08:40 Mask 6 06/12/17 08:35 Mask 6 06/12/17 08:30 Mask 4 06/12/17 08:25 Mask 4 06/12/17 08:11 77 18 132/79 95 Mask 4 06/12/17 06:31 36.7 72 20 169/83 93 Room Air Post Procedure Recovery Score Activity: (2) Moves 4 extremities * Respiration: (2) Deep breath/cough Circulation: (2) +/-20% PreAnes Value Consciousness: (1) Arouseable (by name) Oxygen Saturation: (1) O2 needed for >90% Post Anesthesia Score: 8 Discharge Sedation Level of Care: Fast Track Phase II Post Sedation Plan On clinical assessment, the patient appears to have tolerated the sedation without complications. Patient is recovering as anticipated. Patient will continue to be monitored by nursing and may be discharged when sedation discharge criteria are met per below protocol. Upon Completions of procedure and additional 15 minutes continue every 5 minute vital signs and the P.A.R. score; then discharge to a Phase I or Fast Track to Phase II per the following guidelines: * Discharge Patient to appropriate Phase II area if PAR is 8 or greater or return to pre- procedure baseline. The post - procedure orders will be as directed. * If PAR score is less than 8 or not return to pre-procedure baseline then patient will follow Phase I monitoring till PAR is reached for Phase II. The Phase I may be done in procedure room or may call to secure a Phase I area. * If naloxone or flumazenil are used for reversal, hold in Phase I for an additional 60 -120 minutes before discharge to Phase II. Please call the Sedation Physician to re-evaluate and complete post-note for discharge to Phase II area. Do NOT discharge from procedure sedation or Phase 1 until post- sedation evaluation note is complete by procedure /sedation MD Sedation Discharge Instructions to be given to the patient at discharge to home.
[2017-06-12] MEDS ORDERED: CLOP1TAB5 PO (10:08)
--- NOTE | 2017-06-12 10:09 | Discharge Instructions ---
Discharge Instructions Date of Service Jun 12, 2017. Visit Reason for Visit: Right Popiteal Aneurysm Discharge Discharge Diagnosis / Problem: Right popliteal artery aneurysm Discharge Goals Goal(s): Therapeutic intervention Activity Recommendations Activity Limitations: per Instructions/Follow-up section Anesthesia . Post Anesthesia Instructions: If you have had General Anesthesia or IV Sedation: * Do not drive today. * Resume driving when surgeon permits. * Do not make important decisions or sign legal documents today. * Call surgeon for: 1. Temperature elevations greater than 101 degrees F. 2. Uncontrollable pain. 3. Excessive bleeding. 4. Persistent nausea and vomiting. 5. Medication intolerance (nausea, vomiting or rash). * For nausea and vomiting use only clear liquids such as: tea, soda, bouillon until nausea subsides, then gradually increase diet as tolerated. * If you have any concerns or questions, call your surgeon's office. If physician is unavailable and it is an emergency, call 911 or go to the nearest emergency room. . Instructions / Follow-Up Instructions / Follow-Up Call [phone] to schedule a follow up appointment if one not already scheduled. Do not bend knee for extended periods of time. SPECIAL CARE INSTRUCTIONS: Medications: * Continue to take your medications as directed. If you have been given a prescription for Plavix, please fill it immediately and take as directed. Incision Care: * Your puncture site may have some bruising and minor swelling for about one week. * You will have a small dressing covering your puncture site. You may remove the dressing after 24 hours and shower. You may let the warm soapy water run over it, but be sure to dry the puncture site well and keep it dry. * DO NOT IMMERSE THE INCISION IN A TUB/POOL/etc. UNTIL HEALED. * Puncture sites should be kept covered with a band-aid until it begins to heal. Restrictions: * Depending on whether you leg or arm was punctured to access the arteries, you will be required to lay flat, hold your arm still, or both, for about 4 hours after the procedure to prevent bleeding. * Limit your activity for the first 48 hours. You may walk and go up and down steps. Avoid excessive bending or movement at the puncture site. Possible Complications: * Excessive Swelling - after blood flow is improved you may notice increased swelling in the lower legs. This is a normal response. This usually depends on the amount of blockages in the leg, how long they have been there prior to your procedure and how much blood flow was restored. Elevating your legs will help to improve this. Please notify our office ([phone] ) if the swelling does not go away after lying in bed overnight. * Infection/Drainage/Bleeding - Drainage or bleeding from the puncture site should be minimal. If you have excessive bleeding or drainage, call our office ([phone]) right away. * Pain - You may experience some mild pain or soreness at your puncture site. If your pain does not improve, please contact our office ([phone]). Call your doctor and seek emergent treatment if you develop: * Temperature above 101 degrees * Any fever or chills * Any redness or purulent drainage from the puncture site * Any new dusky/blue colored toes or feet with coolness or sharp or aching pain. SKIN IRRITATION: * You may experience some redness and/or swelling in the area where radiation was administered. If any skin irritation occurs, please contact your family physician. FOLLOW UP VISIT: Keep any scheduled doctor appointments. Diet Recommendations Recommended Home Diet: resume previous diet Procedures Procedures Performed: Endovascular Repair of Right Popliteal Artery Aneurysm, Intravascular Ultrasound Popliteal Artery, Moderate Sedation from 828 - 48. Pending Studies Studies pending at discharge: no Medical Emergencies . Who to Call and When: Medical Emergencies: If at any time you feel your situation is an emergency, please call 911 immediately. . Non-Emergent Contact Non-Emergency issues call your: Surgeon . . "Provider Documentation" section prepared by Rosalino Pleitez. .
[2017-06-12] MEDS ORDERED: CLOPIDOGREL BISULFATE 300 MG TAB PO STA (10:11)
[2017-06-12] MEDS ORDERED: OXYCODONE/ACETAMINOPHEN 5-325 TAB PO PRN (10:15)
--- NOTE | 2017-06-12 11:52 | DIAGNOSTIC IMAGING REPORT ---
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 PROCEDURES: Ultrasound-guided left femoral access, endovascular repair of right popliteal aneurysm with 8 x 25 Viabahn stent, intravascular ultrasound of the right popliteal artery for sizing and positioning, moderate sedation 79 minutes. SURGEON: Dr. Rosalino Pleitez LOSS PREVENTION SUPERVISOR: Dr. Tia Mcallister ESTIMATED BLOOD LOSS: 15 mL. 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 SPECIMEN: None. ANESTHESIA: Moderate sedation plus local. COMPLICATIONS: None. INDICATIONS: Mr. Rafael Kramer is a 76-year-old gentleman with a history of bilateral popliteal aneurysms. His right popliteal aneurysm is 2.9 cm and left popliteal aneurysm is 2.2 cm. He has 2-vessel runoff on the right lower extremity and 3-vessel runoff on the left lower extremity. For this reason, he was recommended to undergo repair of the right popliteal aneurysm first. The risks, benefits, and alternatives were discussed with the patient and he consented to the procedure. DESCRIPTION OF PROCEDURE: The patient was taken to the endovascular suite and placed in the supine position. His bilateral groins were prepped and draped in the usual sterile fashion. Local anesthesia was used to anesthetize the skin overlying the left femoral artery. Ultrasound was used to identify the left femoral artery and it was accessed with an 18-gauge access needle under ultrasound guidance. The J-wire was placed through the needle and the needle was removed. A 5-Nigerien sheath was placed up the left. This was removed and a Perclose was placed up the left and deployed. The J-wire was replaced and the Perclose removed. The 5-Nigerien sheath was then replaced. There was some hematoma appreciated in the left groin with replacement of the smaller sheath. For this reason, we upsized to a 6-Nigerien sheath on the left. The J-wire was removed and an angled Glidewire was placed through the left and up into the infrarenal aorta. A rim catheter was placed over the wire and used to cross the aortic bifurcation. The wire was advanced down the right iliac system. A rim catheter was advanced down the right iliac system and the wire removed. An angiogram of the right groin was obtained. A long stiff angled Glidewire was then placed through the rim catheter and down into the right profunda. The rim catheter was removed. The 6-Nigerien sheath was removed and an 8 x 45 destination sheath was placed over the wire and into the right common femoral. The rim catheter was then replaced over the wire and the right SFA was selected. The rim catheter was advanced into the proximal SFA and the 0.035 Glidewire was removed. Long 0.018 wire was then placed through the rim catheter into the SFA and positioned into the below-knee popliteal artery on the right. The rim catheter was removed and a small caliber IVUS catheter was placed over the wire and into the right SFA. This was used to identify the proximal and distal aspects of the right popliteal aneurysm. It was additionally used to measure the diameter of the artery proximal and distal to the aneurysm. The artery measured approximately 8 mm at the proximal and distal landing zones above and below the popliteal aneurysm. An 8 x 25 Viabahn was then chosen and brought onto the sterile field. IVUS catheter was removed. The Viabahn was advanced over the wire and positioned in the below knee popliteal artery just above the origin of the anterior tibial artery. This was deployed across the popliteal aneurysm without difficulty. Completion angiogram was obtained which showed filling of the aneurysm sac that was likely a type 2 endoleak. To confirm that it was not a type 1 endoleak, an additional angiogram was obtained. We chose to post-dilate the Viabahn stent with a 9 x 2 cm angioplasty balloon. This was advanced over the wire and used to balloon from the mid stent to the proximal aspect of the stent. Completion angiogram was again obtained and it showed residual type 2 endoleak in the aneurysm sac. Lower extremity runoff showed a patent posterior tibial and peroneal arteries with an occluded AT several centimeters beyond its origin as previously identified. The 8-Nigerien sheath was removed and the Perclose was attempted to be secured, however, it did not appropriately secure and for this reason it was cut and removed. Manual pressure was held over the left femoral access site for 20 minutes with good hemostasis. There was some mild ecchymosis at the groin puncture site, but it appeared soft. The patient had palpable PT pulses at the close of the case. A sterile dressing was applied. He was transferred to the recovery area in stable condition. He tolerated the procedure well and there were no immediate complications. He will be given a prescription for Plavix and instructions regarding activity with respect to his right knee given his new stent and risk for occlusion if he keeps his knee flexed for prolonged periods of time. Dr. Rosalino Pleitez was present for the entire procedure.
== END 2017-06-12 13:20 | disposition home or self-care (01) ==
LOC: C.ACU 05:49
PROVIDERS: ATTEND Surgery Vascular Surgery
DX: I72.4 Aneurysm of artery of lower extremity (principal); K44.9 Diaphragmatic hernia without obstruction or gangrene; I25.10 Atherosclerotic heart disease of native coronary artery without angina pectoris; Z79.82 Long term (current) use of aspirin; Z82.49 Family history of ischemic heart disease and other diseases of the circulatory system